=== PATIENT | male | born 1975 | race Asian ===

== ENCOUNTER 2018-07-19 12:59 | Emergency (ER) | payer OTHER ==
[~2018-07-19] VITALS: Ht 167.6 cm; Wt 72.6 kg
[2018-07-19 13:00] VITALS: BP_SYST 143
[2018-07-19] MEDS ORDERED: LIDOCAINE 1% 10 MG/ML, 20 ML MDV INJ ONE (13:30)
[2018-07-19] MEDS ORDERED: DIPH-TET-PERTUS Vaccine 0.5 ML VIAL (ADACEL) I.M. ONE (13:30)
[2018-07-19 13:45] LABS: BASOPHILS # (AUTO) 0.1 K/uL (0.0-0.2); BASOPHILS % (AUTO) 1.8 % (0.0-2.0); EOSINOPHILS # (AUTO) 0.1 K/uL (0.0-0.4); EOSINOPHILS % (AUTO) 1.6 % (0.0-4.0); HEMATOCRIT 43.1 % (36-54); HEMOGLOBIN 13.7 g/dL (14.0-18.0); LYMPHOCYTES # (AUTO) 1.6 K/uL (1.0-5.5); LYMPHOCYTES % (AUTO) 23.9 % (20.5-51.5); MEAN CORPUSCULAR HEMOGLOBIN 25 pg (27-31); MEAN CORPUSCULAR HGB CONC 32 % (32-36); MEAN CORPUSCULAR VOLUME 78 fL (79.0-98.0); MONOCYTES # (AUTO) 0.4 K/uL (0.0-1.0); NEUTROPHILS # (AUTO) 4.4 K/uL (1.8-7.7); NEUTROPHILS % (AUTO) 66.7 % (40.0-70.0); PLATELET COUNT (AUTO) 235 K/uL (130-430); RED BLOOD CELL COUNT(AUTO) 5.52 MIL/uL (4.2-6.2); RED CELL DISTRIBUTION WIDTH 13.5 % (9.0-15.0); WHITE BLOOD COUNT (AUTO) 6.6 K/uL (4.8-10.8)
[2018-07-19 14:04] LABS: CALCIUM 9.2 mg/dL (8.4-11.0); CREATININE 0.85 mg/dL (0.55-1.30); POTASSIUM 3.7 mmol/L (3.5-5.1)
[2018-07-19 14:09] LABS: ALBUMIN 3.6 g/dL (3.4-4.8); TOTAL BILIRUBIN 0.4 mg/dL (0.0-1.0)
[2018-07-19 14:32] LABS: BILIRUBIN,URINE NEGATIVE (NEGATIVE); BLOOD, URINE 1+ (NEGATIVE); CLARITY/URINE CLEAR (CLEAR); COLOR,URINE YELLOW (YELLOW); GLUCOSE,URINE NEGATIVE (NEGATIVE); KETONES,URINE NEGATIVE (NEGATIVE); LEUKOCYTE ESTERASE ,URINE NEGATIVE (NEGATIVE); NITRITE, URINE NEGATIVE (NEGATIVE); PROTEIN URINE TRACE (NEGATIVE); UROBILINOGEN,URINE 0.2 (0.2-1.0)
[2018-07-19 14:48] LABS: BACTERIA,URINE RARE /HPF (None Seen); FINE GRANULAR CASTS,URINE 0-10 /LPF (None Seen); WBC,URINE 0-3 /HPF (0-3)
[2018-07-19 16:15] VITALS: BP_SYST 131
== END 2018-07-19 16:15 | disposition home or self-care (01) ==
LOC: SED 12:59
DX: S01.112A Laceration without foreign body of left eyelid and periocular area, initial encounter (principal); S51.812A Laceration without foreign body of left forearm, initial encounter; S61.412A Laceration without foreign body of left hand, initial encounter; S30.1XXA Contusion of abdominal wall, initial encounter; S20.212A Contusion of left front wall of thorax, initial encounter; R03.0 Elevated blood-pressure reading, without diagnosis of hypertension; V89.2XXA Person injured in unspecified motor-vehicle accident, traffic, initial encounter; Y93.89 Activity, other specified; Y92.411 Interstate highway as the place of occurrence of the external cause; Y99.8 Other external cause status
CPT/HCPCS: 36415; 71045; 72050-TC; 80053; 81000-TC; 85025; 90715; 99285

== ENCOUNTER 2018-07-21 08:37 | Emergency (ER) | payer OTHER ==
[~2018-07-21] VITALS: Ht 167.6 cm; Wt 70.8 kg
[2018-07-21] MEDS ORDERED: KETOROLAC TROMETHAMINE 30 MG VIAL IM ONE (08:45)
[2018-07-21] MEDS ORDERED: cefTRIAXone 1 GM VIAL IM ONE (08:45)
[2018-07-21 08:56] VITALS: BP_SYST 119
[2018-07-21] MEDS ORDERED: LIDOCAINE 1%, 20 ML MDV 20 ML ONE (09:16)
[2018-07-21] MEDS ORDERED: traMADol HCL HCL 50 MG TABLET (ULTRAM) PO ONE (09:30)
[2018-07-21] MEDS ORDERED: ONDANSETRON 4 MG ODT TAB PO ONE (09:30)
[2018-07-21] MEDS ORDERED: BACITRACIN 1 GM OINT TP ONE (10:21)
[2018-07-21 10:30] VITALS: BP_SYST 119
== END 2018-07-21 10:30 | disposition home or self-care (01) ==
LOC: SED 08:37
DX: S41.112D Laceration without foreign body of left upper arm, subsequent encounter (principal); R07.81 Pleurodynia; W45.8XXD Other foreign body or object entering through skin, subsequent encounter
CPT/HCPCS: 71250; 96372; 99284; J0696; J1885; J2001; Q0162